=== PATIENT | male | born 1955 | race Caucasian/White ===

== ENCOUNTER → 2016-05-16 | Outpatient (CLI) | payer BC ==
--- NOTE | 2016-05-16 16:53 | MR ---
MRI Brain, Without Contrast History: Multiple sclerosis. Restaging. Comparison: None. Technique: MRI is performed of the brain using a 3 Kristy MRI system. Sagittal and axial imaging was o btained. Multiplanar reformation was performed of thin cut FLAIR images. Standard imaging sequences w ere performed. Findings: Multiple supratentorial periventricular and deep hemispheric white matter lesions are seen bilaterally. Two of the lesions on the right are perpendicular to the right lateral ventricle. The po sterior of these two lesions has diffusion restriction. No other evidence for diffusion restriction o r mass effect. No other findings for intracranial mass, hemorrhage, or infarct. Ventricles, sulci, an d cisterns are within normal limits for the patient's age. No evidence for an extra-axial fluid colle ction. Major caliber vessels visualized are unremarkable. Craniocervical junction is unremarkable. Mu cous memory thickening is seen in the paranasal sinuses, and the left maxillary sinus is hypoplastic. Impression: Periventricular and deep hemispheric white matter lesions which can be seen with demyelin ating disease such as multiple sclerosis as given by history. One periventricular white matter lesion on the right shows diffusion restriction and could be an active lesion. Consider postcontrast imagin g for further evaluation as clinically indicated.
== END ==
LOC: FIMAGING 13:33
PROVIDERS: ATTEND Physician Assistant Medical
DX: G35 Multiple sclerosis (principal)

== ENCOUNTER 2016-08-24 09:52 | Observation (INO) | payer BC ==
[2016-08-24] MEDS ORDERED: fentaNYL 100 MCG/2 ML INJ ONE (09:54)
[2016-08-24] MEDS ORDERED: LIDOCAINE 1% 30 ML SDV ONE (09:54)
[2016-08-24] MEDS ORDERED: MIDAZOLAM 2 MG/2 ML VIAL ONE ×2 (09:55→12:27)
[2016-08-24] MEDS ORDERED: IOPAMIDOL (ISOVUE-370) 150 ML BTL IV ONE ×3 (09:55→12:30)
[2016-08-24] MEDS ORDERED: NS 1,000 ML IV ONE (10:00)
[2016-08-24] MEDS ORDERED: ASPIRIN EC 325 MG TAB PO ONE (10:00)
[2016-08-24] MEDS ORDERED: FAMOTIDINE 20 MG TAB PO ONE (10:00)
[2016-08-24] MEDS ORDERED: diphenhydrAMINE 25 MG CAP PO ONE (10:00)
[2016-08-24] MEDS ORDERED: DIAZEPAM 5 MG TAB PO ONE (10:00)
--- NOTE | 2016-08-24 10:27 | CPEKG ---
Heart Rate: 62 RR Interval: 968 P-R Interval: 184 QRSD Interval: 76 QT Interval: 392 QTC Interval: 398 P [place]: 39 QRS [place]: 23 T Wave [place]: 5 EKG Severity - BORDERLINE ECG - EKG Impression: SINUS RHYTHM EKG Impression: BORDERLINE T ABNORMALITIES, ANTERIOR LEADS Electronically Signed By: Herbert Martinez 24-Aug-2016 19:03:13
[2016-08-24 10:29] LABS: % IMMATURE GRANULYOCYTES 0.2 % (0.0-1.1); ABSOLUTE IMMATURE GRANULOCYTES 0.01 10^3/uL (0.00-0.10); ADD DIFF? NO; ADD MORPH? NO; ADD SCAN? NO; ATYPICAL LYMPHOCYTE FLAG 0 (0-99); FRAGMENT RBC FLAG 0 (0-99); HEMATOCRIT 43.2 % (40.0-51.0); LEFT SHIFT FLG 0 (0-99); LIPEMIA HEMOLYSIS FLAG 90 (0-99); MEAN CELL HEMOGLOBIN 29.8 pg (27.9-34.1); MEAN CELL HEMOGLOBIN CONCENTR. 34.7 g/dL (32.4-36.7); MEAN CELL VOLUME 85.7 fL (81.5-99.8); MEAN PLATELET VOLUME 8.7 fL (8.7-11.7); PLATELET CLUMPS FLAG 10 (0-99); PLATELET COUNT 265 10^3/uL (150-400); RED BLOOD CELL COUNT 5.04 10^6/uL (4.40-6.38); RED CELL DISTRIBUTION WIDTH 12.2 % (11.5-15.2)
[2016-08-24 10:43] LABS: INR 0.95 (0.83-1.16); PROTIME(PATIENT) 12.6 SEC (12.0-15.0)
[2016-08-24 10:52] LABS: ANION GAP 12 mEq/L (8-16); CALCIUM 9.7 mg/dL (8.5-10.4); CARBON DIOXIDE 21 mEq/l (22-31); CHLORIDE 112 mEq/L (97-110); CHOLESTEROL 147 mg/dL (140-220); CHOLESTEROL/HDL RATIO 3.42 RATIO (1.00-4.97); GLOMERULAR FILTRATION RATE > 60; GLUCOSE 92 mg/dL (70-100); HIGH DENSITY LIPOPROTEIN 43 mg/dL (40-65); LDL/HDL RATIO 1.58 RATIO (1.00-3.64); LOW DENSITY LIPOPROTEIN 68 mg/dL (80-100); MAGNESIUM 1.9 mg/dL (1.6-2.3); NON-HIGH DENSITY LIPOPROTEIN 104 mg/dL (90-129); POTASSIUM 4.2 mEq/L (3.5-5.2); SODIUM 145 mEq/L (134-144); TRIGLYCERIDE 181 mg/dL (40-150); VERY LOW DENSITY LIPOPROTEINS 36 mg/dL (8-25)
[2016-08-24] MEDS ORDERED: BIVALIRUDIN 250 MG/5 ML VIAL IV ONE (11:29)
[2016-08-24] MEDS ORDERED: NITROGLYCERIN 1,500 MCG/15 ML VIAL MISC ONE (11:29)
--- NOTE | 2016-08-24 11:59 | PDDXCAT ---
Diagnostic Cath Note - . Date: 08/24/16 Intervention: see below *Procedure 1. selective coronary angiography 2. PTCA and drug-eluting stent (RUPERTO) implantation in the mid LAD x 3 3. cutting balloon angioplasty of the second LAD diagonal Indication: I was called for interventional consultation following the identification of a 99% mid LAD lesion with MARGE I flow by Dr. Chavez during diagnostic catheterization. Access: Right femoral artery *Materials Left Heart Cath size: 6F Left Heart Cath materials: EBU3.5, Intuition Guide Wire, 3 x 8 mm Emerge balloon , 2.5 x 28 mm Synergy RUPERTO, 2.75 x 8 mm NC Emerge balloon, 3 x 16 mm Synergy drug eluting stent, 3 x 6 mm Ages [employer] scientific cutting balloon, 2.75 x 12 mm Synergy RUPERTO. *Findings-Selective Coronary Angiography LM: The left main is ~4 mm in size and bifurcates into an LAD and circumflex system. LAD: The mid LAD is ~3 mm in size. There is a 99% mid LAD lesion with MARGE I flow. There are also a series of multiple 60-65% lesions just distal to the second LAD diagonal with MARGE I flow to the distal vessel. *Intervention A 6 [place] EBU 3.5 Guide catheter was used for guide catheter support. A 0.014" Intuition Guide Wire was advanced into the distal LAD under direct fluoroscopic and angiographic guidance. A 3 x 8 mm Emerge balloon was used to pre-dilate the prox/mid LAD lesion in question under a maximum of 16 bi of pressure with several inflations. A 2.5 x 28 mm Synergy RUPERTO was exchanged for the balloon and deployed in the mid LAD just distal to the second LAD diagonal (there was a series of 60-65% lesions with MARGE I flow pre-stent implant). The stent was removed and a 3.25 x 12 mm NC Emerge Balloon was used to post-dilate the proximal edge of the stent under a maximum of 16 bi of pressure. The 99% mid LAD lesion just proximal to initial stent implantation was stented with a 3 x 16 mm Synergy RUPERTO under a maximum of 16 bi of pressure. Status post stent implantation, there was 0% residual stenosis with MARGE III flow in the LAD proper; however, there was a 50% stenosis at the ostial takeoff of the second diagonal with MARGE III flow. More importantly, there was angiographic evidence of an edge dissection at the distal margin of the proximal stent. It was clear that the region in between the stents would require stenting and would likely close the diagonal given the ostial disease. A second 0.014" Intuition Guide Wire was inserted into the second LAD diagonal and a 2 x 6 mm Ages [employer] scientific Cutting Balloon was inflated to a maximum of 6 bi of pressure in the ostial segment. A 2.75 x 12 mm Synergy RUPERTO was then placed in the mid LAD and inflated to 20 bi of pressure. Status post intervention there was there was 0% residual stenosis with MARGE III flow. There was step down in the distal LAD after the stent wire was removed, we decided not to try to balloon or stent the distal LAD given the distal location and the excellent improvement in flow in the proximal portion of the vessel. *Summary Complications: None Estimated blood loss: <50 mL Closure method: Manual pressure Assessment/Conclusion: 1. [place] vessel coronary artery disease with flow-limiting lesions of the mid LAD (99% and 60-65% mid plaque area lesions throughout the mid vessel). We proceeded with drug-eluting stent implantation x 3 in the mid LAD and cutting balloon angioplasty of the second LAD diagonal as described above. There was excellent residual results status post PTCA and RUPERTO with 0% residual stenosis and MARGE III flow to the distal vessel. The patient will need to be on dual antiplatelet therapy for at least 1 year following stent implant. His coronary artery disease should be treated with aggressive medical therapy including a statin regimen as an outpatient.
--- NOTE | 2016-08-24 12:36 | PDDXCAT ---
Diagnostic Cath Note - . Date: 08/24/16 [employer]: Scott Indication: CCC Class III and IV angina on medical treatment, High-risk criteria on noninvasive testing (choose option below) High-risk criteria on non-invasive testing: stress-induced moderate-size multiple perfusion defects - Procedure Access: right groin Procedure: left heart catheterization, coronary angiography, left ventriculogram - Materials Left Heart Cath size: 6F Left Heart Cath materials: standard multipack (JL4, JR4, pigtail) - Findings-Left Heart Catheterization LM: short without appreciable luminal irregularities noted. LAD: medium to large diameter vessel with critical mid LAD lesion (>90% stenosed ) between D1 and D2. Mild distal CAD was noted. LCX: Medium to large diameter vessel. One principal OM that continued with proximal LCX diameter. Luminal irregularities of 30% to the mid vessel. RCA: Dominant vessel with right to left collaterals noted. Minimal luminal irregularities noted. EDP: 28 mm Hg LVEF: 60% Wall motion: normal Complications: none Estimated blood loss: <50ml Closure method: manual pressure Assessment: 61 y/o male with abnormal nuclear stress testing and critical mid LAD lesion with normal LVEF. Plan: Dr. Suyapa Martinez to perform PCI to the critical mid LAD lesion Intervention: mid LAD
[2016-08-24] MEDS ORDERED: PRASUGREL HCL 10 MG TAB ONE (12:40)
[2016-08-24] MEDS ORDERED: ONDANSETRON 4 MG/2 ML VIAL IVP PRN (13:40)
[2016-08-24] MEDS ORDERED: ONDANSETRON DISINTEGRATING 4 MG TAB PO PRN (13:40)
[2016-08-24] MEDS ORDERED: LORazepam 2 MG/ML INJ IVP PRN (13:40)
[2016-08-24] MEDS ORDERED: TEMAZEPAM 15 MG CAP PO PRN (13:40)
[2016-08-24] MEDS ORDERED: NITROGLYCERIN 0.4 MG BTL SL PRN (13:40)
[2016-08-24] MEDS ORDERED: ATROPINE SULFATE 1 MG/10 ML SYR IVP PRN (13:40)
[2016-08-24] MEDS ORDERED: ACETAMINOPHEN 325 MG TAB PO PRN (13:40)
[2016-08-24] MEDS ORDERED: PRASUGREL HCL 10 MG TAB PO ONE (13:40)
--- NOTE | 2016-08-24 14:35 | CPEKG ---
Heart Rate: 55 RR Interval: 1091 P-R Interval: 196 QRSD Interval: 84 QT Interval: 436 QTC Interval: 417 P [place]: 42 QRS [place]: 30 T Wave [place]: 7 EKG Severity - ABNORMAL ECG - EKG Impression: SINUS RHYTHM EKG Impression: LOW VOLTAGE IN FRONTAL LEADS EKG Impression: T ABNORMALITIES, ANTERIOR LEADS SUGGESTIVE OF ISCHEMIA Electronically Signed By: Herbert Martinez 24-Aug-2016 19:02:38
[2016-08-24] MEDS: NS 1,000 ML IV SCH ×2 (15:54→18:40)
[2016-08-25 03:53] VITALS: O2SAT 93
[2016-08-25 04:39] LABS: % IMMATURE GRANULYOCYTES 0.3 % (0.0-1.1); ABSOLUTE IMMATURE GRANULOCYTES 0.02 10^3/uL (0.00-0.10); ADD DIFF? NO; ADD MORPH? NO; ADD SCAN? NO; ATYPICAL LYMPHOCYTE FLAG 0 (0-99); FRAGMENT RBC FLAG 0 (0-99); HEMATOCRIT 37.3 % (40.0-51.0); HEMOGLOBIN 12.6 g/dL (13.7-17.5); LEFT SHIFT FLG 0 (0-99); LIPEMIA HEMOLYSIS FLAG 90 (0-99); MEAN CELL HEMOGLOBIN 30.1 pg (27.9-34.1); MEAN CELL HEMOGLOBIN CONCENTR. 33.8 g/dL (32.4-36.7); MEAN PLATELET VOLUME 9.2 fL (8.7-11.7); PLATELET CLUMPS FLAG 0 (0-99); PLATELET COUNT 206 10^3/uL (150-400); RED BLOOD CELL COUNT 4.19 10^6/uL (4.40-6.38); RED CELL DISTRIBUTION WIDTH 12.5 % (11.5-15.2)
[2016-08-25 05:13] LABS: ALBUMIN 3.3 g/dL (3.5-5.0); ANION GAP 7 mEq/L (8-16); ASPARTATE AMINOTRANSFERASE 29 IU/L (17-59); BILIRUBIN,TOTAL 0.8 mg/dL (0.1-1.4); CALCIUM 8.6 mg/dL (8.5-10.4); CARBON DIOXIDE 23 mEq/l (22-31); CHLORIDE 110 mEq/L (97-110); GLOMERULAR FILTRATION RATE > 60; GLUCOSE 80 mg/dL (70-100); LACTATE DEHYDROGENASE 445 IU/L (313-618); MAGNESIUM 1.9 mg/dL (1.6-2.3); SODIUM 140 mEq/L (134-144)
[2016-08-25] MEDS ORDERED: PRASUGREL HCL 10 MG TAB PO SCH (09:00)
[2016-08-25] MEDS ORDERED: ASPIRIN EC 325 MG TAB PO SCH (09:00)
--- NOTE | 2016-08-25 09:02 | CPEKG ---
Heart Rate: 68 RR Interval: 882 P-R Interval: 184 QRSD Interval: 80 QT Interval: 408 QTC Interval: 434 P [place]: 40 QRS [place]: 40 T Wave [place]: 9 EKG Severity - ABNORMAL ECG - EKG Impression: SINUS RHYTHM EKG Impression: LOW VOLTAGE IN FRONTAL LEADS EKG Impression: NONSPECIFIC T ABNORMALITIES, ANTERIOR LEADS Electronically Signed By: Herbert Martinez 25-Aug-2016 14:38:49
[2016-08-25] MEDS ORDERED: ATORVASTATIN CALCIUM 10 MG TAB PO SCH (10:45)
[2016-08-25 11:28] VITALS: BP 125/83; PULSE 74; RESP 20; TEMP 98.2
--- NOTE | 2016-08-25 15:35 | GDS ---
[f rep st] DISCHARGE SUMMARY ADMISSION DIAGNOSES: 1. Positive nuclear stress test. 2. Planned cardiac angiogram with possible percutaneous coronary intervention. 3. Hyperlipidemia. DISCHARGE DIAGNOSES: 1. Status post cardiac angiogram with percutaneous coronary intervention of the left anterior desce nding. 2. Coronary artery disease. 3. Hyperlipidemia. COURSE OF HOSPITALIZATION: This gentleman was seen in clinic by Dr. Marcus Chavez after having a nucl ear stress test, which was positive. It was recommended that he have a cardiac angiogram to further evaluate for coronary artery disease. He was in agreement with this plan. He was taken to the cat h lab by Dr. Marcus Chavez on August 24, 2016, where he found a 90% blockage of the LAD. Dr. Herbert Martinez was then asked to intervene, and place a stent to the LAD vessel. This was accomplished with no co mplications. He then was taken to PCU for overnight observation, where he has done well. He has be en up ambulating with no right groin site bleeding or discomfort. His monitoring tech shows a reg ular sinus rhythm with a rate of 60. He has no chest pain or shortness of breath. At this time, he currently is stable for discharge. ALLERGIES: He has no known allergies. HOME MEDICATIONS: Synthroid 50 mcg daily, vitamin B complex 1 tablet daily, herbal supplements 1 da otoniel, multivitamin 1 daily, vitamin D3 5000 units daily, sertraline 50 mg at bedtime, Tecfidera 240 m g twice daily, Lipitor 10 mg daily, acetaminophen 650 mg every 4 hours as needed for discomfort, Nit rostat 0.4 mg sublingual 1 tablet x3 five minutes apart as needed for chest discomfort or angina, Ef fient 10 mg daily, aspirin enteric-coated 325 mg daily. PHYSICAL EXAM: VITAL SIGNS: On day of discharge, blood pressure 125/83, heart rate 74, and regular , oxygen saturation 93%, temperature 36.8 Celsius. EKG shows normal sinus rhythm with no ischemic c hanges. HEART: Rate is regular. No murmurs, rubs, or gallops. LUNGS: Sounds are clear to auscul tation. No wheezes, rales, or rhonchi. ABDOMEN: Right groin site is intact with no bleeding, ciro ration or discomfort. He does have ecchymosis of the groin area. No hematoma is noted. EXTREMITIE S: He has no leg numbness or tingling. Peripheral pulses are 2+ bilaterally. LABORATORY: Lipids: Total cholesterol 147, triglycerides 181, HDL 43, LDL calculated 68. White bl ood count 6.13, hemoglobin 12.6, hematocrit 37.3. DISCHARGE PLAN: 1. He will be discharged home. 2. His medications were reviewed. He understands he needs to take his Effient daily without fail. Additionally, he is on aspirin 325 mg daily. He will continue all home medications as prior to hos pitalization. 3. Groin care instructions were given verbally and written instructions provided. 4. No heavy lifting, pushing, pulling greater than 10 pounds for 1 week. No sitting in a tub of wa ter for 1 week. Okay to shower. 5. Should groin site bleed, he is to hold heavy pressure and go to the nearest emergency room. 6. Follow up in 1 [place] [facility] [place]. Appointment September 01 at 11 o'clock PAC. Jh 7. Should he have any concerns or questions, feel free to call the office. He is recommended to participate in cardiac rehab. Cardiac Rehab will call him to set up an appoint ment. At this time, he currently is stable for discharge. /[id number]/MODL
[2016-08-25] MEDS ORDERED: Dimethyl Fumarate [Tecfidera] 240 MG PO SCH (21:00)
[2016-08-25] MEDS ORDERED: SERTRALINE HCL 50 MG TAB PO SCH (21:00)
[2016-08-26] MEDS ORDERED: LEVOTHYROXINE 50 MCG TAB PO SCH (06:00)
[2016-08-26] MEDS ORDERED: MULTIVITAMINS 1 EACH TAB PO SCH (09:00)
[2016-08-26] MEDS ORDERED: Herbals/Supplements -Info Only PO SCH (09:00)
[2016-08-26] MEDS ORDERED: VITAMIN B COMPLEX 1 EA CAP/TAB PO SCH (09:00)
[2016-08-26] MEDS ORDERED: CHOLECALCIFEROL VIT D3 2,000 UNITS TAB/CAP PO SCH (09:00)
== END 2016-08-25 12:36 | disposition home or self-care (01) ==
LOC: FCATH 09:52 → F2W 15:00
PROVIDERS: ADMIT Internal Medicine Cardiovascular Disease; ATTEND Internal Medicine Cardiovascular Disease
PROC: 02703ZZ Dilation of Coronary Artery, One Artery, Percutaneous Approach (ICD-10-PCS; principal; 2016-08-24)
PROC: 027036Z Dilation of Coronary Artery, One Artery with Three Drug-eluting Intraluminal Devices, Percutaneous Approach (ICD-10-PCS; principal; 2016-08-24)
PROC: B2151ZZ Fluoroscopy of Left Heart using Low Osmolar Contrast (ICD-10-PCS; 2016-08-24)
PROC: 4A023N7 Measurement of Cardiac Sampling and Pressure, Left Heart, Percutaneous Approach (ICD-10-PCS; 2016-08-24)
PROC: B2111ZZ Fluoroscopy of Multiple Coronary Arteries using Low Osmolar Contrast (ICD-10-PCS; 2016-08-24)
DX: I25.10 Atherosclerotic heart disease of native coronary artery without angina pectoris (principal); G35 Multiple sclerosis; E03.9 Hypothyroidism, unspecified; E78.5 Hyperlipidemia, unspecified
CPT/HCPCS: 92921; 92928; 93005; 93458; C1725; C1769; C1887; G0378; C1874; C9600; J0583; J1644; J2250; J3010; Q9967

== ENCOUNTER → 2017-05-29 | Outpatient (CLI) | payer BC | LOC: FIMAGING 10:06 | PROVIDERS: ATTEND Physician Assistant Medical | DX: G35 Multiple sclerosis (principal); M50.21 Other cervical disc displacement, high cervical region; M46.92 Unspecified inflammatory spondylopathy, cervical region; M48.02 Spinal stenosis, cervical region; M46.95 Unspecified inflammatory spondylopathy, thoracolumbar region ==